=== PATIENT | male | born 1995 | race Caucasian/White ===

== ENCOUNTER 2022-01-11 02:35 | Emergency (ER) | payer OTHER, BC, SELFPAY ==
[2022-01-11 02:37] VITALS: BP 138/76; PULSE 85; RESP 16; TEMP 36.9; O2SAT 99; BMI 45.9
--- NOTE | 2022-01-11 02:47 | EX.ED.UPPERE ---
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 He states once he noticed this, he saw a couple of pumps of blood from it so he immediately used his left hand to make a tourniquet proximal to the wound which helped to limit the bleeding. [id number]. No other injuries. No problems using his hand or feeling distally after this injury. Tetanus Immunization: >10 years [facility] Medical History no medical history no medical history Home Medications cefadroxil 500 mg capsule 500 mg PO BID #10 caps 01/11/22 [Rx Last Taken Unknown] Allergy/AdvReac Type Severity Reaction Status Date / Time No Known Allergies Allergy Verified 01/11/22 02:36 Surgical History Hx of cholecystectomy Social History Smoking Status: Never smoker ROS ROS ED Constitutional Constitutional ED: Denies chills or fever(s) Musculoskeletal Musculoskeletal: Reports extremity pain; Denies neck pain Integumentary Reports wounds; Denies Abrasions or rash Neurologic Neurologic: Denies paresthesias or weakness EXAM Physical Exam Const Vital Signs: 01/11/22 02:37 Temperature 98.4 F Temperature Source Temporal Pulse Rate 85 Respiratory Rate 16 Blood Pressure 138/76 H Blood Pressure Mean 96 Pulse Ox 99 Oxygen Delivery Method Room Air Positive well nourished and well developed General Appearance ED: well developed and NAD Neck full ROM and supple Back/Spine normal ROM and normal to inspection Extremity full ROM Extremity Narrative: Wound to the middle of the right volar forearm, no loss of function, all FDP and FDS tendons intact distally. No bony tenderness. Full range of motion all joints. Neuro oriented x3, no focal motor deficits and no sensory deficits noted Sensorium / Orientation: alert Psych mental status grossly normal and thought process normal Skin Skin Narrative: 6 cm stellate wound/laceration middle of the volar right forearm into subcutaneous fat/tissue, no tendon involvement seen. Clean appearing no contamination. No tissue loss noted. Rashes: no rashes MDM MDM MDM Narrative Medical decision making narrative: Laceration was repaired, there were multiple flaps to reapproximate. And result was excellent, with good skin edge apposition including landmark apposition. His tetanus was updated. Only restrictions are for wound coverage. No x-rays needed. Procedures Lacerations R forearm: Length: 6 cm Depth: Sub Q (down to but not through fascia) Shape: Stellate Prep: Sterile Conditions and Chlorhexadine Laceration repair: Irrigated, Lidocaine with epi (6cc, 1%) and Skin sutures Irrigated (ml): 120 Number of Sutures/Liane: 8 Suture Information: Ethilon, Simple and 4-0 Discharge Plan Triage Chief Complaint: Laceration ED Provider: Michael Almeida Dx/Rx/DC Orders Clinical Impression: Laceration of forearm, right, Tyzxezgsrw-[id number]-ooodiwdxd (DTP) vaccination Instructions: ED Laceration: All Closures Prescriptions: New cefadroxil 500 mg capsule 500 mg PO BID Qty: 10 0RF Stand Alone Forms: Work Status Form Primary Care Provider: Care Physician,No Primary Referrals: Corporate,Care [GROUP OF PHYSICIANS] - 10-14 Days suture removal Care Physician,No Primary [Primary Care Provider] - Disposition Disposition: Home, Self Care
[2022-01-11] MEDS: Diphth,Pertuss(Acell),Tet Vac 0.5 ML Vial IM (03:07)
[2022-01-11] MEDS: Lidocaine 1% /Epi 1:100 (20ml) 20 ML Vial INFILT (04:04)
== END 2022-01-11 04:07 | disposition home or self-care (01) ==
PROVIDERS: Emergency Provider Emergency Medicine; Visit Provider Emergency Medicine
DX: S51.811A Laceration without foreign body of right forearm, initial encounter (principal); Y99.0 Civilian activity done for income or pay; W01.0XXA Fall on same level from slipping, tripping and stumbling without subsequent striking against object, initial encounter; Z23 Encounter for immunization
CPT/HCPCS: 12002; 90471; 90715; 99285

== ENCOUNTER 2022-09-12 01:11 | Emergency (ER) | payer MEDICAID, SELFPAY ==
[2022-09-12 01:12] VITALS: BP 161/83; PULSE 91; RESP 20; TEMP 36.6; O2SAT 99; BMI 45.8
[2022-09-12 01:24] VITALS: O2SAT 97
--- NOTE | 2022-09-12 01:24 | EKG12_ITS ---
Test Reason : CP Blood Pressure : / mmHG Vent. Rate : 074 BPM Atrial Rate : 074 BPM P-R Int : 134 ms QRS Dur : 154 ms QT Int : 422 ms P-R-T Axes : 029 054 021 degrees QTc Int : 468 ms Normal sinus rhythm Right bundle branch block Abnormal ECG Confirmed by NAT TOBAR, SAMY ([id number]), assignment desk editor MANNY LONG ([id number]) on 09/13/2022 1:54:08 PM Referred By: CHRISSY Confirmed By:SAMY JOHNS MD
[2022-09-12] MEDS: Aspirin 81 MG TAB.CHEW 324 MG PO (01:28)
--- NOTE | 2022-09-12 01:30 | RAD_ITS ---
INDICATION: chest pain EXAMINATION/TECHNIQUE: X-RAY - XR Chest 1 View COMPARISON: None. FINDINGS: LINES/DEVICES: None. LUNGS: No consolidation, edema or effusion. No pneumothorax. MEDIASTINUM AND CARDIOVASCULAR STRUCTURES: Cardiac silhouette not enlarged. Central airways and mediastinal contour are unremarkable. BONES AND SOFT TISSUES: Unremarkable. RAD/Chest 1 View (Portable) IMPRESSION: No radiographic evidence of acute cardiopulmonary disease. Electronically Signed: Gregg Palma MD at 1:46 EST ,
--- NOTE | 2022-09-12 01:35 | EDS_ITS ---
HPI History of Present Illness Chief Complaint: Chest Pain Informant: patient Narrative Narrative: At about 6:00 this evening patient had some pain in his right bicep area. He does not know why this happened. It did not go anywhere else and he did not feel any systemic symptoms from this. He never had any chest or back pain. No jaw pain. No nausea vomiting diaphoresis or lightheadedness. He took Tylenol and that seemed to get better. But he did not take Tylenol till almost 4 hours into it. After taking the Tylenol and the right side seemed better he noticed that his left side was a little sore in the same area its midportion of his humerus. He still has no other associated symptoms. He called his dad who stated there is family history of heart disease which prompted the patient to come in. He has never had chest pain, nausea, vomiting, shortness of breath or diaphoresis. No exertional symptoms. The arm is a little bit sore to move but he has not done any lifting or pulling that would have aggravated it. He has not been ill recently. No first-degree relative history of heart disease at any age. He does not have high blood pressure, cholesterol or diabetes that he knows of. No recent travel surgery or history of DVT or PE. PFSH PFS Home Medications NK 09/12/22 [History Last Taken Unknown] Allergy/AdvReac Type Severity Reaction Status Date / Time No Known Allergies Allergy Verified 01/11/22 02:36 Surgical History Hx of cholecystectomy Social History Smoking Status: Never smoker ROS ROS ED Constitutional Constitutional ED: Denies chills, fever(s), subjective or sweats Eyes Eyes: Denies change in vision ENT ENT ED: Denies rhinorrhea or sore throat Cardiovascular Cardiovascular: Denies chest pain, palpitations or racing heartbeat Respiratory/Chest Respiratory/Chest: Denies cough, dyspnea, dyspnea on exertion or sputum Gastrointestinal Gastrointestinal: Denies abdominal pain, diarrhea, nausea or vomiting Genitourinary Genitourinary ED: Denies dysuria Musculoskeletal Musculoskeletal: Reports other Details: See history of present illness ; Denies back pain or neck pain Integumentary Denies rash Neurologic Neurologic: Denies headache(s), paresthesias or weakness Endocrine Endocrinology: Denies polydipsia or polyuria Hematologic/Lymphatic Hematologic/Lymphatic: Denies easy bleeding, easy bruising or lymphadenopathy Allergic/Immunologic Allergic/Immunologic ED: Denies urticaria EXAM Physical Exam Narrative Exam Narrative: Patient awake alert no acute distress sitting in bed carries on normal conversation. HEENT shows no sign of trauma or rash. Mucous membranes are moist. Neck shows no JVD or tenderness no pain with range of motion. Lungs are completely clear bilaterally. No pain with a deep breath. Saturations are normal at 99% on room air. Heart is regular with a rate of about 90. No murmur gallop or rub. Peripheral pulses are normal x4. No distant tones. Abdomen is soft completely nontender. Patient has had prior cholecystectomy. No CVA tenderness or suprapubic tenderness Extremities show no edema cords asymmetry tenderness along deep venous system or distended veins. He does have mild tenderness of his left bicep but not right. However the this tenderness does not completely reproduce the feeling he had. Skin shows no pallor or rash or diaphoresis. Const Vital Signs: 09/12/22 01:12 09/12/22 01:15 09/12/22 01:24 Temperature 97.9 F Temperature Source Temporal Pulse Rate 91 Respiratory Rate 20 H Respiratory Effort Normal Non-Labored Blood Pressure 161/83 H Blood Pressure Mean 109 Pulse Ox 99 97 Oxygen Delivery Method Room Air Room Air 09/12/22 02:11 09/12/22 03:00 Temperature Temperature Source Pulse Rate 75 72 Respiratory Rate 16 23 H Respiratory Effort Blood Pressure 125/56 H 128/75 H Blood Pressure Mean 79 92 Pulse Ox 97 98 Oxygen Delivery Method Room Air Room Air MDM MDM MDM Narrative Medical decision making narrative: My independent interpretation of the patient's single view but to image AP chest x-ray shows no acute process. No infiltrate or pneumothorax or notable cardiomegaly. Radiology reading was no radiographic evidence of acute cardiopulmonary disease. CBC was normal. Electrolytes show no acute abnormalities. Troponin was negative at 4. Patient did start with some symptoms on his right side about 6:00 but it was later in the evening closer to 11 or so where he started on the left. Because of this I will do a repeat troponin. I explained this to him. He was okay with this plan. Repeat troponin is still less than 7. Patient is doing well. I think he is safe to go home and follow-up with his primary physician. Lab Data Attestation: I reviewed the patient's lab results. Labs: Laboratory Results - last 24 hr 09/12/22 09/12/22 09/12/22 01:18 01:18 03:35 WBC 10.2 RBC 4.80 Hgb 14.6 Hct 44.1 MCV 91.9 MCH 30.4 MCHC 33.1 RDW Std Deviation 40.3 RDW Coeff of Flora 12.0 Plt Count 318 MPV 10.7 Immature Gran % (Auto) 0.300 Neut % (Auto) 48.7 Lymph % (Auto) 39.7 [place] % (Auto) 8.6 Eos % (Auto) 1.9 Baso % (Auto) 0.8 Absolute Neuts (auto) 5.0 Absolute Lymphs (auto) 4.05 Nucleated RBC % 0 Sodium 141 Potassium 3.5 Chloride 105 Carbon Dioxide 30.0 Anion Gap 6 BUN 14 Creatinine 0.94 Estim Creat Clear Calc 120.80 Est GFR (MDRD) Af Amer 122 Est GFR (MDRD) Non-Af 101 BUN/Creatinine Ratio 14.8 Glucose 110 H Calcium 9.2 Troponin I High Sens 4 6 Radiography Diagnostic Testing: Clinical Impression(s) from Imaging Studies Chest X-Ray 09/12/22 01:30 IMPRESSION: No radiographic evidence of acute cardiopulmonary disease. Electronically Signed: Gregg Palma MD at 1:46 EST Reading Location ID and State: [facility] / [place] Tel , Service support , EKG Initial EKG: Comments: My independent interpretation of the patient's EKG done for chest pain shows a normal sinus rhythm with overall rate of 74. No ventricular ectopy. He does have right bundle branch block pattern. However, no acute ST elevation or depression consistent with infarct or ischemia. This EKG was done while he had left arm pain. NM interval is normal. QRS duration is long. QTc is toward the longer end at 468 ms. There is no old for comparison. Discharge Plan Triage Chief Complaint: Chest Pain ED Provider: Heriberto Blum Dx/Rx/DC Orders Clinical Impression: Arm pain, left, Arm pain, right Instructions: ED Chest Pain, Uncertain Cause Prescriptions: No Action NK Primary Care Provider: Care Physician,No Primary Referrals: Sayda Sykes DO [Med Staff - Active Staff] - 3-5 Days Care Physician,No Primary [Primary Care Provider] - Disposition Disposition: Home, Self Care
[2022-09-12 01:53] LABS: Anion Gap 6 (5-15); BUN 14 mg/dL (7-18); BUN/Creat Ratio 14.8 RATIO (10-20); Calcium,Total 9.2 mg/dL (8.5-10.1); Chloride 105 mmol/L (98-107); Creatinine, Serum 0.94 mg/dL (0.70-1.30); EST Glomerular Filtration Rate 101 mL/min (>60); Est Glom Filt Rate - Afr Amer 122 mL/min (>60); Glucose 110 mg/dL (74-106); Potassium 3.5 mmol/L (3.5-5.1); Sodium Level 141 mmol/L (136-145); Troponin-I HS (w/2H Reflex) 4 pg/mL (3.0-78.0)
[2022-09-12 01:56] LABS: Absolute Lymphocyte Count 4.05 X10^3/uL (0.83-4.51); Basophil# 0.08 X10^3/uL; Basophil% 0.8 % (0-1); Eosinophil# 0.19 X10^3/uL; Eosinophils% 1.9 % (0-5); Hematocrit 44.1 % (40-54); Hemoglobin 14.6 g/dL (13.0-16.5); Lymphocyte # 4.05 X10^3/ul (0.83-4.51); Lymphocyte % 39.7 % (19-41); Mean Corp Hgb Conc 33.1 g/dL (32-36); Mean Corpuscular Hgb 30.4 pg (27.0-32.0); Mean Corpuscular Volume 91.9 fL (80-94); Mean Platelet Vol. 10.7 fl (6.2-12.0); Monocyte# 0.88 X10^3/uL; Monocyte% 8.6 % (0-10); NRBC Flagged by Analyzer 0 % (0-5); Neutrophil # 4.98 X10^3/uL (2.7-7.7); Neutrophil % 48.7 % (47-70); Platelet Count 318 K/mm3 (150-450); RBC Distribution Width SD 40.3 fl (35.1-43.9); White Blood Count 10.2 K/mm3 (4.4-11.0)
[2022-09-12 02:11] VITALS: BP 125/56; PULSE 75; RESP 16; O2SAT 97
[2022-09-12 03:00] VITALS: BP 128/75; PULSE 72; RESP 23; O2SAT 98
[2022-09-12 03:33] LABS: Reflex Troponin-HS? (from REC) Y
[2022-09-12 04:02] LABS: Troponin-I HS 6 pg/mL (3.0-78.0)
[2022-09-12 04:37] VITALS: BP 134/79; PULSE 80; RESP 22; O2SAT 97
== END 2022-09-12 04:40 | disposition home or self-care (01) ==
PROVIDERS: Emergency Provider Emergency Medicine; Visit Provider Emergency Medicine
DX: M79.602 Pain in left arm (principal); M79.601 Pain in right arm
CPT/HCPCS: 71045; 80048; 84484; 85025; 93005; 99284; A4216

== ENCOUNTER 2024-01-01 17:04 | Emergency (ER) | payer MEDICAID, SELFPAY ==
[2024-01-01 17:05] VITALS: BP 169/96; PULSE 74; RESP 16; TEMP 36.3; O2SAT 98; BMI 43.0
--- NOTE | 2024-01-01 17:23 | EX.ED.DYSGE1 ---
HPI <NICOLAS Hernandez - Last Filed: 01/01/24 18:47> History of Present Illness Chief Complaint: Sore Throat Narrative Narrative: 28-year-old male woke up with sensation of sore throat and left neck fullness this morning. He states he can eat and drink but it hurts to swallow. Around 2 PM he felt like the swelling on the left side of his neck enlarged. He has no fever, chills, runny nose or cough. No difficulty breathing. He does not take any medications. PFSH <NICOLAS Hernandez - Last Filed: 01/01/24 18:47> PFSH Home Medications ?Medication ?Instructions ?Recorded ?Last Taken ?Type NK 09/12/22 Unknown History Allergy/AdvReac Type Severity Reaction Status Date / Time No Known Allergies Allergy Verified 01/01/24 17:09 Surgical History Hx of cholecystectomy Social History Smoking Status: Never smoker ROS <NICOLAS Hernandez - Last Filed: 01/01/24 18:47> ROS ED ROS Narrative Constitutional: Negative for fever, chills, malaise. ENT: Positive for sore throat. Respiratory: Negative for shortness of breath, cough. GI: Negative for abdominal pain, nausea, vomiting, diarrhea. Neuro: Negative for headache. EXAM <NICOLAS Hernandez Last Filed: 01/01/24 18:47> Physical Exam Narrative Exam Narrative: CONST: Patient sitting in no acute distress. EYES: Normal inspection. ENT: Moist mucous membranes, pharyngeal erythema without tonsillar swelling or exudate, midline uvula, no trismus or tongue elevation, sublingual space is soft, handling secretions normally with no drooling or stridor. NECK: Normal inspection. Left cervical lymphadenopathy, trachea midline. RESP: No respiratory distress, CTAB. CVS: Regular rate and rhythm, no murmur, no gallop. SKIN: Color normal, no rash, warm, dry, intact. EXTREMITIES: Normal appearance, no pedal edema. NEURO: Alert and answering questions appropriately. PSYCH: Normal affect. Const Vital Signs: 01/01/24 17:05 Temperature 97.3 F L Temperature Source Temporal Pulse Rate 74 Respiratory Rate 16 Blood Pressure 169/96 H Blood Pressure Mean 120 Pulse Ox 98 Oxygen Delivery Method Room Air <Dr. Ke Prajapati MD - Last Filed: 01/01/24 18:41> Physical Exam Const Vital Signs: 01/01/24 17:05 Temperature 97.3 F L Temperature Source Temporal Pulse Rate 74 Respiratory Rate 16 Blood Pressure 169/96 H Blood Pressure Mean 120 Pulse Ox 98 Oxygen Delivery Method Room Air MDM <NICOLAS Hernandez - Last Filed: 01/01/24 18:47> [facility] Narrative Medical decision making narrative: Differential: Viral versus bacterial pharyngitis Patient has pharyngeal erythema and left anterior cervical lymphadenopathy. He looks well, afebrile, hemodynamically stable. He has no signs of peritonsillar abscess or Monico's angina. Rapid strep negative. I discussed symptomatic treatment for viral pharyngitis and return precautions. He was discharged in stable condition. I have personally performed a face to face assessment of the patient and have reviewed the LEE ANN Note. I performed a substantive portion of the visit including all aspects of the following. My freed findings include: History is 28-year-old male with sore throat today. Able to swallow. No trouble breathing. No vomiting or diarrhea. Mild cough. Exam is [well-appearing 28-year-old male. Vital signs stable afebrile. HEENT exam posterior pharynx minimal erythema. No exudate. No peritonsillar abscess. No stridor or drooling. No trouble swallowing. TMs normal. Neck mild anterior chain lymphadenopathy. Trachea midline. No meningismus. Lungs clear to auscultation bilaterally. Heart regular rhythm no murmur. Rate about 70. Chest wall and ribs nontender. Abdomen soft nontender. Moving all 4 extremities. Nontender no edema. No axillary nor any inguinal lymphadenopathy. Back chest and abdomen and extremities no rash. Neurologically is awake and alert no focal motor deficits.] Medical Decision Making [28-year-old male sore throat today. Rapid strep negative. Treated symptomatically as viral pharyngitis. Follow-up as needed. Return if worse.] Other additions or changes: [None] <Dr. Ke Prajapati MD - Last Filed: 01/01/24 18:41> [facility] Narrative Medical decision making narrative: I have personally performed a face to face assessment of the patient and have reviewed the LEE ANN Note. I performed a substantive portion of the visit including all aspects of the following. My freed findings include: History is 28-year-old male with sore throat today. Able to swallow. No trouble breathing. No vomiting or diarrhea. Mild cough. Exam is [well-appearing 28-year-old male. Vital signs stable afebrile. HEENT exam posterior pharynx minimal erythema. No exudate. No peritonsillar abscess. No stridor or drooling. No trouble swallowing. TMs normal. Neck mild anterior chain lymphadenopathy. Trachea midline. No meningismus. Lungs clear to auscultation bilaterally. Heart regular rhythm no murmur. Rate about 70. Chest wall and ribs nontender. Abdomen soft nontender. Moving all 4 extremities. Nontender no edema. No axillary nor any inguinal lymphadenopathy. Back chest and abdomen and extremities no rash. Neurologically is awake and alert no focal motor deficits.] Medical Decision Making [28-year-old male sore throat today. Rapid strep negative. Treated symptomatically as viral pharyngitis. Follow-up as needed. Return if worse.] Other additions or changes: [None] History & Record Review Discussion w/independent historian: Patient Discharge Plan Triage Chief Complaint: Sore Throat ED Midlevel Provider: Sayda Quesada ED Provider: Ke Prajapati/Rx/DC Orders Clinical Impression: Acute viral pharyngitis Instructions: ED Pharyngitis, Viral Prescriptions: No Action NK Primary Care Provider: Care Physician,No Primary Referrals: Care Physician,No Primary [Primary Care Provider] - Activity Restrictions/Additional Instructions: Your strep swab is negative. It would be sent for culture. At this time your sore throat is most likely viral and I recommend salt water gargles and alternating Tylenol and Motrin every 3 hours as needed. Print Language: [place] Disposition Disposition: Home, Self Care
[2024-01-01 18:45] VITALS: BP 134/89; PULSE 76; RESP 18; TEMP 37; O2SAT 99
== END 2024-01-01 18:47 | disposition home or self-care (01) ==
PROVIDERS: Emergency Provider Emergency Medicine; Visit Provider Emergency Medicine
DX: J02.8 Acute pharyngitis due to other specified organisms (principal); B97.89 Other viral agents as the cause of diseases classified elsewhere
CPT/HCPCS: 87651; 99282